=== PATIENT | female | born 1960 | race Caucasian/White ===

== ENCOUNTER 2018-03-24 01:09 | Outpatient (CLI) | payer BC, SELFPAY ==
[2018-03-24 12:06] LABS: ALT 21 U/L (12-78); AST 21 U/L (15-37); Albumin 3.4 g/dL (3.4-5.0); Alkaline Phosphatase 93 U/L (46-116); Anion Gap 7.8 mmol/L (3-11); BUN 12 mg/dL (7-18); Bilirubin, Total 0.6 mg/dL (0.2-1.0); CO2 30.2 mmol/L (21.0-32.0); CREATININE 0.87 mg/dL (0.55-1.02); Calcium 8.9 mg/dL (8.5-10.1); Chloride 104 mmol/L (98-107); Glucose 85 mg/dL (70-100); Potassium 4.2 mmol/L (3.5-5.1); Sodium 142 mmol/L (136-145)
== END 2018-03-24 01:29 ==
DX: E03.9 Hypothyroidism, unspecified (principal); G47.9 Sleep disorder, unspecified; Z00.00 Encounter for general adult medical examination without abnormal findings
CPT/HCPCS: 36415; 80053

== ENCOUNTER 2019-04-04 01:21 | Outpatient (CLI) | payer BC, SELFPAY ==
[2019-04-04 12:41] LABS: Anion Gap 5.4 mmol/L (3-11); BUN 24 mg/dL (7-18); CO2 28.6 mmol/L (21.0-32.0); Calcium 8.5 mg/dL (8.5-10.1); Chloride 109 mmol/L (98-107); Glucose 93 mg/dL (74-106); Potassium 4.6 mmol/L (3.5-5.1); Sodium 143 mmol/L (136-145)
== END 2019-04-04 01:41 ==
DX: Z00.00 Encounter for general adult medical examination without abnormal findings (principal); Z13.228 Encounter for screening for other metabolic disorders
CPT/HCPCS: 36415; 80048

== ENCOUNTER 2019-05-11 01:39 | Outpatient (CLI) | payer BC, SELFPAY ==
--- NOTE | 2019-05-11 15:51 | DI.MAMMO_ITS ---
EXAM: MAMMO SCREENING CLINICAL HISTORY: screening, Z12.39 TECHNIQUE: Mammograms were interpreted according to the usual protocol including computer analysis w [employer] CAD system, tomosynthesis and C-view imaging. COMPARISON: 2009 through 2017 FINDINGS: The breasts are composed of scattered fibroglandular densities, Breast Density category B. No suspicious masses or suspicious microcalcifications are seen. No skin thickening or abnormal axillary lymph nodes are seen. There has been no significant change from prior exams. IMPRESSION: BIRADS Category 1, negative mammogram. Yearly screening mammography is recommended.
== END 2019-05-11 01:59 ==
DX: Z12.31 Encounter for screening mammogram for malignant neoplasm of breast (principal)
CPT/HCPCS: 77063; 77067

== ENCOUNTER 2019-09-23 08:36 | Outpatient (CLI) | payer BC, SELFPAY ==
[2019-09-30 10:20] LABS: SARS-CoV-2 RNA Undetected (Undetected)
== END 2019-09-23 08:56 ==
DX: Z20.828 Contact with and (suspected) exposure to other viral communicable diseases (principal)
CPT/HCPCS: U0003

== ENCOUNTER 2020-01-06 13:59 | Emergency (ER) | payer BC, SELFPAY ==
[2020-01-06 14:03] VITALS: BP 125/80; PULSE 72; RESP 18; TEMP 36.7; O2SAT 96
[2020-01-06 14:28] LABS: Bilirubin Moderate (Negative); Blood Negative (Negative); Clarity Sl Cloudy (Clear); Glucose Negative (Negative); Ketones 40 mg/dL (Negative); Leukocyte Esterase Small (Negative); Nitrite Negative (Negative); Specific Gravity >= 1.030 (1.005-1.025); Urobilinogen 0.2 EU/dL (Up TO 0.2)
--- NOTE | 2020-01-06 14:30 | DI.CT_ITS ---
EXAM: CT ABDOMEN PELVIS W INDICATION: Abd pain, N/V/D. COMPARISON: No exams were available for comparison TECHNIQUE: FINDINGS: CT examination of the abdomen and pelvis was performed with a bolus infusion of 100 cc of Omnipaque 3 50. Images obtained through the lung bases are unremarkable. The liver is unremarkable appearance. Gallbladder and bile ducts are CT normal. Pancreas appears normal. Spleen is unremarkable in appearance. Adrenals and kidneys are unremarkable. Urinary bladder unremarkable. Abdominal aorta is of normal diameter and no major vascular abnormality is seen. No abdominal wall hernia. No abdominal or pelvic adenopathy. There is low-attenuation structure in the pelvis to the right of midline, this measures about 7 cm in diameter period this may represent a cysts cystic lesion, however solid components not excluded by C T and correlation with pelvic ultrasound recommended.. Appendix is normal. No evidence of diverticulitis or bowel obstruction. IMPRESSION: Indeterminate probably cystic lesion of the pelvis, likely ovarian in origin. Pelvic ultrasound requ ested for further characterization in a postmenopausal patient to exclude neoplastic disease. RADIATION DOSE DELIVERED: 999.23mGy.cm Total DLP 999.23mGy.cm Total DLP
[2020-01-06 14:41] LABS: Bacteria Moderate HPF (Negative); C & S Indicated? Yes; Casts Negative LPF (Negative); Crystals Negative HPF (Negative); Epithelial Cells Few HPF (Negative); Mucus Heavy (Negative); RBC Negative HPF (0-2); WBC 20-50 HPF (0-5)
--- NOTE | 2020-01-06 14:43 | ED.GENADUL_ITS ---
Discharge Plan Disposition Patient Disposition: HOME Condition: Good Discharge Details Clinical Impression: Diarrhea, Abdominal discomfort Primary Care Provider: Eula Salazar ED Provider: Malathi Gannon Home Meds and New Rx's Prescriptions: Continued trazodone 100 mg tablet 100 mg PO HS Qty: 45 RF: 3 ascorbic acid (vitamin C) [Vitamin C] 1,000 MG tablet 1,000 mg PO DAILY RF: 0 Shingrix (PF) 50 mcg/0.5 mL suspension for reconstitution 0.5 ml IM ONCE Qty: 1 RF: 0 Discharge Instructions Instructions: Acute Diarrhea (ED) Additional Instructions: Please continue to encourage water intake. Tylenol and/or ibuprofen as needed for discomfort. You may use Imodium to help with your frequent diarrhea. Please take as directed on the packaging. As we discussed, mesenteritis was noted on your CT scan. This likely goes along with viral infection and inflammatory issue that is causing her diarrhea. However, her general surgeon has recommended that she follow-up with her primary care in 3 months and have repeat imaging to ensure that this is clear. We also need to have an outpatient ultrasound to assess assist in your adnexa. Please discuss this further with your primary care. If you develop increased pain, fever/inability stay hydrated or other new/worsening symptoms to seek care urgently once again. Otherwise, please recheck your primary care next week to schedule your outpatient ultrasound once her diarrhea has slowed down and schedule follow-up appointment. Referrals: Eula Salazar, [facility] [Primary Care Provider] - Discharge Data Discharge Date/Time-TO BE ENTERED AT DEPARTURE: 01/06/20 19:05 Medical Decision Making <Danelle Aldridge - Last Filed: 01/10/20 08:32> 59-year-old female presents to the ER with abdominal pain, nausea vomiting diarrhea which began constantly 48 hours ago. Patient reports chills. Constant pain with no radiation. She has no history of abdominal surgeries. She is postmenopausal. She describes the pain as stabbing needles to her bilateral lower extreme abdomen. Denies any vaginal bleeding or discharge. Denies any hematemesis or hematochezia. She did take some Pepto-Bismol prior to arrival. At this time work-up ordered including CBC, CMP, urinalysis, lipase, CT abdomen pelvis. Differential diagnosis includes but not limited to gastroenteritis, diverticulitis, appendicitis, colitis, urinary tract infection. Care is to be handed off to oncoming provider Malathi Teixeira pending CT result. Patient is just leaving department at this time to go to CT. At this time labs have resulted which are largely within normal limits. Sodium was 135, potassium 3.3, urinalysis shows 30 urine protein, 48 urine ketones moderate bilirubin, small leukocytes, 20-50 WBCs culture is pending at this time. <MONICA Alford - Last Filed: 01/06/20 22:08> Care transition myself from Adriana Aldridge NP with CT imaging pending. Please see her note for initial presentation, exam and history. In brief, patient is a pleasant food 59-year-old female who came in today with left-sided abdominal pain. On Marck's initial exam, pain was noted in the left upper and lower quadrants. Laboratory findings thus far have been fairly unremarkable. No previous abdominal surgeries. Patient was noted to have small amount of leukocyte esterase in her urine. Did appear dehydrated based on UA. Has been receiving fluids. FINDINGS: Lungs: Dependent atelectatic changes at the pulmonary bases. Liver: Normal. No mass. Gallbladder and bile ducts: Normal. No calcified stones. No ductal dilation. Pancreas: Normal. No ductal dilation. Spleen: Normal. No splenomegaly. Adrenals: Normal. No mass. Kidneys and ureters: Normal. No hydronephrosis. Stomach and bowel: Unremarkable. No obstruction. No mucosal thickening. Appendix: No evidence of appendicitis. Intraperitoneal space: Unremarkable. No free air. No significant fluid collection. Vasculature: Unremarkable. No abdominal aortic aneurysm. Lymph nodes: Ground-glass appearance of the mesentery with mildly prominent lymph nodes. Mesenteritis is not excluded. Urinary bladder: Unremarkable as visualized. Reproductive: Right adnexal cyst measures 6.8 cm. Left adnexal varices. Bones/joints: Unremarkable. No acute fracture. Soft tissues: Uncomplicated small umbilical hernia.. IMPRESSION: 1. Dependent atelectatic changes at the pulmonary bases. 2. Right adnexal cyst measures 6.8 cm. Follow-up with ultrasound. 3. Left adnexal varices. 4. Ground-glass appearance of the mesentery with mildly prominent lymph nodes. Mesenteritis is not excluded. Consulted with Dr. Lambert. We discussed the mesenteritis. She advises that there is no strict guidelines for this. Advised this is more of a follow up although a soft finding. She advises CT in 3 months would be a erring on the side of caution. Discussed his findings at length with the patient. I reexamined her abdomen she has no right-sided pain to suggest right adnexal pathology nor does she have any pain in the lower abdomen the left side. Pain does seem to be more mid left side. This could go along with the mesenteritis and prominent lymph nodes noted. We discussed her history further, she reports that she has had 20 watery bowel movements today. No bright red blood. Her hemoglobin was stable. She states that her coworker had similar illness last week and suffered from d iarrhea for few days with self resolution. Patient is not immunocompromised. She denies any antibiotic usage. She denies any camping, unusual food or water intake. No recent travel. No fevers or chills. No nausea or vomiting. Patient has not had a bowel movement since being here, patient has been in the department for 3-1/2 hours. She reports that she could potentially give us a stool sample now, will order C. difficile testing although she does not express any risk associated with this. Testing was negative. Lactoferrin was positive. Discussed these findings with the patient. We will hold off on any antibiotics at this point. As discussed with her the findings of the urinalysis. She denies any dysuria, increased urgency. She reports increased frequency but associates this more with using the restroom more frequently with her bowel habits. She reports she has had UTIs historically and does not feel like that at this time. At this point, we will hold off and wait for culture. Patient was given strict return precautions. I encourage close follow-up with primary care particularly if symptoms are not improving next week. All of her questions and concerns were addressed and she is in agreement this plan. HPI <Danelle Aldridge - Last Filed: 01/10/20 08:32> General Mode of arrival: ambulatory . Date/Time Provider Initiated Documentation: 01/06/20 14:15 . Limitations to Documentation: no limitations . Information obtained by: patient . HPI Narrative: 59-year-old female presents to the ER with abdominal pain, nausea vomiting diarrhea which began constantly 48 hours ago. Patient reports chills. Constant pain with no radiation. She has no history of abdominal surgeries. She is postmenopausal. She describes the pain as stabbing needles to her bilateral lower extreme abdomen. Denies any vaginal bleeding or discharge. Denies any hematemesis or hematochezia. She did take some Pepto-Bismol prior to arrival. Related Data Home Medications Medication Instructions Recorded Confirmed ascorbic acid (vitamin C) [Vitamin 1,000 mg PO DAILY 07/10/16 01/06/20 C] trazodone 100 mg tablet 100 mg PO HS #45 tab-cap 03/29/19 01/06/20 varicella-zoster glycoE [id number] 0.5 ml IM ONCE #1 each 04/04/19 01/06/20 adj(PF) 50 mcg/0.5 mL IM susp, kit Previous Rx's Medication Instructions Recorded trazodone 100 mg tablet 100 mg PO HS #45 tab-cap 03/29/19 varicella-zoster glycoE [id number] 0.5 ml IM ONCE #1 each 04/04/19 adj(PF) 50 mcg/0.5 mL IM susp, kit Allergies Allergy/AdvReac Type Severity Reaction Status Date / Time erythromycin base Allergy Unknown NOT SURE Verified 12/09/19 17:46 OF REACTION General Stated Complaint: Abd Prob EMILY: 3 Review of Systems <Danelle Aldridge - Last Filed: 01/10/20 08:32> Narrative: Constitutional: Negative for weight loss, alert and oriented, well groomed, normal body habitus, appears comfortable. HEENT: Denies trauma, headaches, blurry vision, nasal discharge, sore throat, trouble swallowing. Chest: Denies chest pain, palpitations, irregular rhythm, hypertension. Respiratory: Denies Shortness of breath, cough, hemoptysis. GI: Denies constipation. Positive abdominal pain, nausea vomiting diarrhea x48 hours. : Denies dysuria, hematuria, flank pain, rectal bleeding. Neuro: Denies dizziness, blurry vision, weakness, syncope, headache or facial numbness. Hematologic: Denies easy bruising, intolerance to heat or cold, hair loss. PFS <Danelle Aldridge - Last Filed: 01/10/20 08:32> Medical History Abnormal finding on ultrasound (07/10/16) Abnormal uterine bleeding (06/18/16) Cyst of right ovary (06/18/16) Increased body mass index (BMI) Right flank pain (06/18/16) Shoulder pain, left Surgical History Colonoscopy - [facility] 03/12/12 Uterine polyp removal [facility] [place] Family History Mother , [place] at age 62. Diabetes Essential hypertension Heart disease Hyperlipidemia Myocardial infarction Maternal Uncle Diabetes Father No problems noted. Sister No problems noted. Sister No problems noted. Sister No problems noted. Sister No problems noted. Brother No problems noted. Brother No problems noted. Maternal Grandfather No problems noted. Paternal Grandfather No problems noted. Maternal Grandmother No problems noted. Paternal Grandmother No problems noted. Son No problems noted. Son No problems noted. Social History Smoking/Tobacco Use Status: Never Alcohol Intake: current Alcohol Intake frequency: a few times a week Alcohol type: beer, wine and hard liquor Drug use: Never Substance use type: does not use Counseling given: No Counseling provided: none Caregiver/Support person: No Household members: spouse Housing: house Communication Needs: None Do you need help understanding health information?: Rarely current occupation: public teacher [employer] Pets and animals: No Sexually active: Yes Do you think of yourself as: straight/heterosexual Current gender identity: female What is your relationship status?: How often do you talk on the phone with friends or family?: once per week How often do you get together with friends or relatives?: three or more times per week How often do you attend nondenominational or shinto services?: decline to answer Do you belong to any clubs or organized social groups?: yes Panel score (0-1 are the most socially isolated patients): 3 What type of physical activity do you participate in: aerobic and yoga Duration: 30-45 minutes/day Frequency: 3-4 times per week [place]/Zoroastrian: Taoism Special paris needs: No Seatbelt use: always Helmet use: Yes Helmet use: always Drive intox or ride w/intox emergency detail driver: No Do you feel safe at home: Yes Do you feel safe in your relationship?: Yes Exam <Danelle Aldridge - Last Filed: 01/10/20 08:32> Narrative Exam Narrative: Constitutional: Alert and oriented x3. Appears stated age. Normal body habitus. Head: Normocephalic, no trauma. Eyes: Pupils PERRLA, Red reflex noted, EOM's intact. Eyelids symmetrical without lesions, discharge, or swelling. ENT: Bilateral TM's WNL, External ear normal to inspection, no mastoid TTP, swelling, or erythema, Nasal turbinates WNL, no nasal discharge. Normal dentition, Posterior pharynx WNL, no exudate. Chest: RRR, Normal S1, S2, distal pulses intact. Resp: Lungs clear to auscultation bilaterally, no wheezes, rales, or rhonchi. Abdomen: Soft nondistended abdomen, normoactive bowel sounds all 4 quadrants. Does have some left upper quadrant and left lower quadrant tenderness to palpation. Musculoskeletal: Normal gait, 5/5 strength to all four extremities. Skin: No suspicious rashes or lesions. Capillary refill less than 2 sec. Neurologic: Cranial nerves II-XII intact. Alert and oriented x 3. DTR's intact. Hematologic/Lymphatic: No ecchymosis, no lymphadenopathy. Course <Danelle Aldridge - Last Filed: 01/10/20 08:32> Vital Signs Vital signs: Vital Signs Temperature 36.7 C 01/06/20 14:03 Pulse 72 01/06/20 14:03 Respiratory Rate 18 01/06/20 14:03 Blood Pressure 125/80 01/06/20 14:03 Pulse Oximetry 96 01/06/20 14:03 Temperature 36.7 C 01/06/20 14:03 Temperature Source Tympanic 01/06/20 14:03 Pulse 72 01/06/20 14:03 Respiratory Rate 18 01/06/20 14:03 Respiratory Effort Non-Labored 01/06/20 14:06 Blood Pressure 125/80 01/06/20 14:03 Blood Pressure Position Sitting 01/06/20 14:03 Pulse Oximetry 96 01/06/20 14:03 Oxygen Delivery Method Room Air 01/06/20 14:03 Oxygen Flow Rate 0 01/06/20 14:03 Pain Level 7 01/06/20 14:03 Lab/Test Results Lab/Test Results: 01/06/20 14:20 Urine - Reflex from Ua Urine Culture - Pending Laboratory Tests Range/Units 01/06/20 14:20 Urine Color (Yellow) Lizz Urine Clarity (Clear) Sl cloudy Urine pH (5-8) 6.0 Ur Specific Anselmo (1.005-1.025) >= 1.030 H Urine Protein (Negative) mg/dL 30 H Urine Ketones (Negative) mg/dL 40 H Urine Blood (Negative) Negative Urine Nitrite (Negative) Negative Urine Bilirubin (Negative) Moderate H Urine Urobilinogen (Up TO 0.2) EU/dL 0.2 Ur Leukocyte Esterase (Negative) Small H Urine RBC (0-2) HPF Negative Urine WBC (0-5) HPF 20-50 H Ur Epithelial Cells (Negative) HPF Few Urine Crystals (Negative) HPF Negative Urine Bacteria (Negative) HPF Moderate Urine Casts (Negative) LPF Negative Urine Mucus (Negative) Heavy Ur Culture Indicated? Yes Urine Glucose (Negative) mg/dL Negative Sign Out <Danelle Aldridge - Last Filed: 01/10/20 08:32> Sign Out Data: Sign Out Comment: Pending CT/ abd results and possible UTI Last updated by Danelle Aldridge at 01/06/20 15:52
[2020-01-06 15:07] LABS: Abs Immature Grans 0.01 10^3/uL (0.0-0.06); Absolute Basophil Count 0.03 10^3/uL (0.0-0.2); Absolute Eosinophil Count 0.08 10^3/uL (0.0-0.7); Absolute Lymphocyte Count 1.09 10^3/uL (1.2-3.4); Absolute Monocyte Count 0.26 10^3/uL (0.1-0.8); Absolute Neutrophil Count 4.78 10^3/uL (1.2-6.7); Basophils % 0.5; Eosinophils % 1.3; HCT 42.7 % (36.0-46.0); HGB 14.3 g/dL (11.2-15.7); Immature Grans % 0.2; Lymphocytes % 17.4; MCH 30.6 pg (27.0-33.0); MCHC 33.5 % (32.0-36.0); MCV 91.4 fL (80-95); MPV 9.9 fL (8.0-11.0); Monocytes % 4.2; Neutrophils % 76.4; Nucleated RBC 0 %; Platelet Count 329 10^3/uL (130-400); RBC 4.67 10^6/uL (3.93-5.22); RDW 12.4 % (11.7-14.6); RDW-SD 41.6 fL; WBC 6.25 10^3/uL (4.4-10.8)
[2020-01-06 15:16] LABS: ALT 16 U/L (14-59); AST 24 U/L (15-37); Albumin 3.5 g/dL (3.4-5.0); Alkaline Phosphatase 112 U/L (46-116); BUN 15 mg/dL (7-18); Bilirubin, Total 0.4 mg/dL (0.2-1.0); CREATININE 0.89 mg/dL (0.55-1.02); Calcium 8.8 mg/dL (8.5-10.1); Chloride 100 mmol/L (98-107); Glucose 101 mg/dL (74-106); Lipase 113 U/L (73-393); Magnesium 1.9 mg/dL (1.8-2.4); Potassium 3.3 mmol/L (3.5-5.1); Sodium 135 mmol/L (136-145); Total Protein 8.3 g/dL (6.4-8.2)
[2020-01-06] MEDS: Omnipaque 350 MG/ML 100 ML BTL IJ (16:07)
[2020-01-06] MEDS: Normal Saline - Diluent 50 ML VIAL IV (16:08)
--- NOTE | 2020-01-06 16:33 | DI.VRAD_ITS ---
PROCEDURE INFORMATION: Exam: CT Abdomen And Pelvis With Contrast Exam date and time: 01/06/2020 4:10 PM Age: 59 years old Clinical indication: Other: Lower abd pain. ; Patient HX: N/v/d TECHNIQUE: Imaging protocol: Computed tomography of the abdomen and pelvis with intravenous contrast. Radiation optimization: All CT scans at this facility use at least one of these dose optimization techniques: automated exposure control; mA and/or kV adjustment per patient size (includes targeted exams where dose is matched to clinical indication); or iterative reconstruction. Contrast material: OMNIPAQUE 350; Contrast volume: 100 ml; Contrast route: INTRAVENOUS (IV); COMPARISON: MRI PELVIS WO W 07/07/2016 5:04 PM FINDINGS: Lungs: Dependent atelectatic changes at the pulmonary bases. Liver: Normal. No mass. Gallbladder and bile ducts: Normal. No calcified stones. No ductal dilation. Pancreas: Normal. No ductal dilation. Spleen: Normal. No splenomegaly. Adrenals: Normal. No mass. Kidneys and ureters: Normal. No hydronephrosis. Stomach and bowel: Unremarkable. No obstruction. No mucosal thickening. Appendix: No evidence of appendicitis. Intraperitoneal space: Unremarkable. No free air. No significant fluid collection. Vasculature: Unremarkable. No abdominal aortic aneurysm. Lymph nodes: Ground-glass appearance of the mesentery with mildly prominent lymph nodes. Mesenteritis is not excluded. Urinary bladder: Unremarkable as visualized. Reproductive: Right adnexal cyst measures 6.8 cm. Left adnexal varices. Bones/joints: Unremarkable. No acute fracture. Soft tissues: Uncomplicated small umbilical hernia.. IMPRESSION: 1. Dependent atelectatic changes at the pulmonary bases. 2. Right adnexal cyst measures 6.8 cm. Follow-up with ultrasound. 3. Left adnexal varices. 4. Ground-glass appearance of the mesentery with mildly prominent lymph nodes. Mesenteritis is not excluded. Dictated and Authenticated by: Ariane Wolf MD. Ordering:SADNY Mcclendon MD
[2020-01-06 17:50] VITALS: BP 111/72; PULSE 62; RESP 16; O2SAT 98
== END 2020-01-06 19:05 | disposition home or self-care (01) ==
PROVIDERS: Registered Nurse Emergency; Emergency Provider Physician Assistant
DX: K65.4 Sclerosing mesenteritis (principal); R19.7 Diarrhea, unspecified; R11.2 Nausea with vomiting, unspecified; R10.30 Lower abdominal pain, unspecified
CPT/HCPCS: 36415; 80053; 83690; 99285; 74177; 81003; 81015; 83630; 83735; 85025; 87086; 87324; J3490

== ENCOUNTER 2020-02-07 01:45 | Outpatient (CLI) | payer BC, SELFPAY ==
--- NOTE | 2020-02-07 07:30 | DI.US_ITS ---
EXAM: US PELVIS TRANSVAGINAL CLINICAL HISTORY: F/U of abdominal CT - ? ovarian cyst or mass,ABD DISCOMFORT,R10.9 TECHNIQUE: Transabdominal and transvaginal imaging was performed using standard protocol. COMPARISON: US PELVIS TRANSVAG from 06/27/2016 US PELVIS TRANSVAG from 06/27/2016 MR MRI PELVIS WO W from 07/07/[address] ABDOMEN PELVIS W from 01/06/2020 FINDINGS: KIDNEYS: Kidneys are symmetric in size. No evidence of renal calculi. No evidence of hydronephrosis. No renal mass or cyst identified. UTERUS: Anteverted. 8.0 x 3.5 x 5 cm. Endometrium: 2 millimeters Myometrium: Unremarkable. Stable appearance of 1.4 centimeter hypoechoic lesion in the right side of the uterus which could be endometrial or myometrial. Cervix: Unremarkable. OVARIES: Right: 7.4 x 5.2 x 5.2 cm. Cyst or mass: Stable size of simple appearing right ovarian cyst measuring 6 cm in maximal dimension.. No mural nodularity or septations. Left: 2.4 x 1.8 x 1.8 cm. Cyst or mass: None. DOPPLER: Color: Symmetric and uniform flow to both ovaries. No hyperemia. Duplex: Normal ovarian arterial waveforms visualized. CUL-DE-SAC: Free fluid: None. IMPRESSION: 1. Stable appearance of small low-density lesion in the right uterine fundus.. 2. Stable size and appearance of simple right ovarian cyst measuring 6 cm in greatest dimension.. DATA REPOSITORY:
== END 2020-02-07 02:05 ==
DX: N83.291 Other ovarian cyst, right side (principal); R10.9 Unspecified abdominal pain
CPT/HCPCS: 76830; 76856

== ENCOUNTER 2020-04-03 09:07 | Outpatient (REF) | payer BC, SELFPAY ==
--- NOTE | 2020-04-03 07:20 | PAPFT_PTH ---
PATIENT: Tesha Whitlock LOC: [facility] U#:[id number] AGE/SX: 60/F ROOM: RE04/03/[address]: Eula Salazar APRN : 1960 BED: DIS: 04/03/2020 SPEC #: [id number] RECD: 04/03/20 13:00 STATUS: LIO RERandi #: [id number] VON: 04/03/20 07:[address]: Eula Salazar DEPT: [facility] Cytology RECD BY: Rosalind Mason Tissues: 1 - CX/ENDOCX FOR PAP SMEARS Procedures: PAP THIN PREP/UVM Screening HPV DNA PROBE Comments: [id number]
== END 2020-04-03 09:27 ==
LOC: LBN 09:07
DX: Z12.4 Encounter for screening for malignant neoplasm of cervix (principal); Z11.51 Encounter for screening for human papillomavirus (HPV)
CPT/HCPCS: 88142; 87624

== ENCOUNTER 2020-05-15 13:48 | Outpatient (CLI) | payer BC, SELFPAY ==
--- NOTE | 2020-05-15 | DI.MAMMO_ITS ---
EXAM: MAMMO SCREENING CLINICAL HISTORY: SCREENING, Z12.39 TECHNIQUE: Mammograms were interpreted according to the usual protocol including computer analysis w [employer] CAD system, tomosynthesis and C-view imaging. COMPARISON: FINDINGS: The breasts are heterogeneously dense. No dominant mass or clumped microcalcification is identified in either breast. The current examination is compared with previous examinations including April 2019 and there has been no gross interval change in appearance in comparison with the prior studies. IMPRESSION: No specific evidence of malignancy at this time. Routine screening examinations are suggested at yea rly intervals in this age group according to the ACS ACR guidelines. BI-RADS Category 1 - Negative Breast Density - Category C - Heterogeneously dense
== END 2020-05-15 14:08 ==
DX: Z12.31 Encounter for screening mammogram for malignant neoplasm of breast (principal)
CPT/HCPCS: 77063; 77067

== ENCOUNTER 2021-03-27 21:34 | Outpatient (REF) | payer BC, SELFPAY | END 2021-03-27 21:35 | disposition home or self-care (01) | LOC: LBN 21:34 | PROVIDERS: Visit Provider Nurse Practitioner Family | DX: J02.9 Acute pharyngitis, unspecified (principal) | CPT/HCPCS: 87070 ==

== ENCOUNTER 2021-07-12 00:53 | Outpatient (CLI) | payer BC, SELFPAY ==
--- NOTE | 2021-07-12 06:30 | DI.MAMMO_ITS ---
Exam(s) MAMMO SCREENING EXAM: MAMMO SCREENING CLINICAL HISTORY: screening,z12.39 TECHNIQUE: Mammograms were interpreted according to the usual protocol including computer analysis w [employer] CAD system, tomosynthesis and C-view imaging. COMPARISON: 2011 through 2020 FINDINGS: The breasts are composed of heterogeneously dense fibroglandular densities, Breast Density category C . No suspicious masses or suspicious microcalcifications are seen. No skin thickening or abnormal axillary lymph nodes are seen. There has been no significant change from prior exams. IMPRESSION: BI-RADS Category 1, Negative mammogram. Yearly screening mammography is recommended. Breast Density Category C, heterogeneously Dense. The mammogram demonstrates the patient's breast tissue is dense. Dense breast tissue is very common a nd is not abnormal but dense breast tissue can make it harder to find cancer on a mammogram. Also, de nse breast tissue may increase breast cancer risk. This information about the result of the mammogram report was provided to the patient to raise their awareness. Use this report when you speak with the patient about their risks for breast cancer, which includes their family history. At that time, you may recommend additional screening tests (Ultrasound or MRI) as they might be useful based on their r isk. A negative radiographic report should not delay biopsy if a dominant or clinically suspicious mass is present. Up to ten percent of cancers are not identified on mammography. A negative report may reinforce clinical impression. Adenosis and dense breasts may obscure an underlying neoplasm. False positive reports average 6 to 10%.
== END 2021-07-12 01:13 ==
DX: Z12.31 Encounter for screening mammogram for malignant neoplasm of breast (principal)
CPT/HCPCS: 77063; 77067

== ENCOUNTER 2022-02-25 02:37 | Outpatient (CLI) | payer BC, SELFPAY ==
[2022-02-25 17:12] LABS: ALT 17 U/L (14-59); AST 20 U/L (15-37); Albumin 3.8 g/dL (3.4-5.0); Alkaline Phosphatase 101 U/L (46-116); Anion Gap 5.8 mmol/L (3-11); BUN 14 mg/dL (7-18); Bilirubin, Total 0.5 mg/dL (0.2-1.0); CO2 31.2 mmol/L (21.0-32.0); CREATININE 0.7 mg/dL (0.55-1.02); Calcium 8.6 mg/dL (8.5-10.1); Chloride 102 mmol/L (98-107); Estimated GFR 98.95 (mL/min/1.73m2); Glucose 114 mg/dL (74-106); Potassium 3.6 mmol/L (3.5-5.1); Sodium 139 mmol/L (136-145); Total Protein 7.9 g/dL (6.4-8.2)
== END 2022-02-25 02:38 | disposition home or self-care (01) ==
PROVIDERS: PCP Nurse Practitioner Family
DX: E03.9 Hypothyroidism, unspecified (principal); Z00.00 Encounter for general adult medical examination without abnormal findings
CPT/HCPCS: 36415; 80053

== ENCOUNTER 2022-04-11 11:54 | Day surgery (SDC) | payer BC, SELFPAY ==
--- NOTE | 2022-04-10 21:43 | W.PM.DSUDISC ---
Date of service: 04/11/22 Time of Service: 14:55 Discharge Plan Disposition Patient Disposition: Home Condition: Good Discharge Details Reason For Visit: Screening colonoscopy Attending Provider: Ganga Weller Primary Care Provider: Ayden Busch Home Meds and New Rx's Prescriptions: Continued ascorbic acid (vitamin C) [Vitamin C] 1,000 MG tablet 1,000 mg PO DAILY trazodone 100 mg tablet 100 mg PO HS Qty: 90 3RF Discontinued polyethylene glycol 3350 17 gram/dose powder 238 g PO ONCE Qty: 238 0RF Rx Instructions: take per colonoscopy instructions bisacodyl [Dulcolax (bisacodyl)] 5 mg tablet,delayed release (DR/EC) 5 mg PO ONCE Qty: 4 0RF Rx Instructions: take per colonoscopy instructions Discharge Instructions Additional Instructions: 1. If tolerated, consume a soft, low fiber diet for 1-2 days. 2[address] Do not drive, drink alcohol, operate machinery, make critical decisions, or do activities that require coordination or balance for 24 hours. 3. Because air was put into your colon during the procedure, expelling air from your rectum (passing gas or farting) is normal. 4. You may not have a bowel movement for 1-3 days because of the colonoscopy prep. This is normal. 5. Go directly to the emergency room if you notice any of the following: Develop chills (warm to touch), or if you have a thermometer and your temperature is above 101 Difficulty breathing or difficultly swallowing Persistent vomiting Severe abdominal pain, other than gas cramps Severe chest pain Black, tarry stools Any bleeding ? exceeding one tablespoon 6. Call your physician if the site where your intravenous was started becomes red, swollen, painful, and warm to touch. 7. Your physician has reviewed your pre-procedure medications. Please continue to take those medications as previously ordered. You will be given specific information/education regarding any changes to your medications before leaving. Activity:: Activity as Tolerated Diet:: As Tolerated Discharge Orders Discharge Orders: Discharge Order (Routine); Ordered 04/10/22 Ordered By: Ganga Weller DS: Diagnosis Discharge Diagnosis (1) Colon cancer screening: Status: Acute Asessment and Plan: Tesha, we are able to complete your colonoscopy today. The quality of your prep was excellent. there were no abnormalities. You should undergo another screening colonoscopy in 10 years to reduce your chance of from colon cancer.
--- NOTE | 2022-04-10 21:45 | W.COLOREPORT ---
Date of service: 04/11/22 Time of Service: 14:56 Colonoscopy Report Date of procedure: 04/11/22 Pre-op diagnosis general: Screening colonoscopy Post-op diagnosis procedure note: same Procedure: Colonoscopy Surgeon: Ganga Weller Anesthesia Type: General:No Airway Estimated blood loss (mL): 0 Pathology: none sent Complications: None Disposition: same day Indications: Tesha is a 62-year-old woman following up for her second screening colonoscopy. Prep: Miralax/Dulcolax Procedure Start Time: 14:32 Procedure End Time: 14:50 Retraction Time: 10 Findings: Normal colonoscopy Procedure Description: After the induction of monitored anesthetic care, and with the patient in left lateral decubitus position, I began by performing an external anorectal exam.? Perineum and skin were normal, as was the anal verge.? There was no evidence of external hemorrhoids.? Next, I performed a digital rectal exam.? I did not appreciate any abnormal findings.? Next, I advanced a colonoscope into the rectal vault.? I performed retroflexion.? This was normal.? Using insufflation, I then advanced the colonoscope beyond the rectal folds and into the sigmoid colon before advancing towards the cecum.? The quality of the prep was adequate.? The scope was noted to be in the cecum by identification of the ileocecal valve and appendiceal orifice.? I then began withdrawing the colonoscope using repeated irrigation as necessary for full evaluation of the colonic mucosa. ?Once the scope was withdrawn to the level of the rectum, great care was taken to examine portions of the rectal folds.? Finally, the scope was withdrawn and the patient was brought to the same-day surgery recovery unit as the anesthetic wore off. ?The findings and instructions were shared with the patient prior to discharge.
[2022-04-11 12:54] VITALS: BP 121/83; PULSE 73; RESP 16; TEMP 36.2; O2SAT 96
[2022-04-11] MEDS: Lactated Ringers 1,000 ML 80 ML IV (13:03)
[2022-04-11 13:35] VITALS: BMI 28.9
--- NOTE | 2022-04-11 13:35 | ANES.PREOP_ITS ---
General Info Date of Service Date Performed: 04/11/22 Height: 5 ft 5 in Weight: 78.925 kg Body Mass Index (BMI): 28.9 Surgical Procedure: Operation Date: 04/11/22 14:20 Proposed Procedure Side Surgeon p Edilberto Weller MD Meds Allergies and Home Medications Allergies Allergy/AdvReac Type Severity Reaction Status Date / Time erythromycin base Allergy Unknown NOT SURE Verified 04/11/22 12:52 OF REACTION Home Medication Medication Instructions Recorded ascorbic acid (vitamin C) 1,000 mg 1,000 mg PO DAILY 07/10/16 tablet (Vitamin C) trazodone 100 mg tablet 100 mg PO HS #90 tab-caps 12/09/21 Current Visit Medications: Current Medications Generic Name Dose Route Start Last Admin Trade Name Freq PRN Reason Stop Dose Admin Hyoscyamine Sulfate 0.125 mg 04/10/22 21:46 Hyoscyamine 0.125 Mg Sl/Oral/Chew SL DIRECTED PRN Ringer's Solution 1,000 mls @ 80 mls/hr 04/11/22 06:00 04/11/22 13:03 IV 05/10/22 23:59 80 mls/hr INFUSION MURPHY Administration IV Miscellaneous Supplies 1 each 04/11/22 06:00 Iv Access IV 05/10/22 23:59 DIRECTED MURPHY Ondansetron HCl 4 mg 04/10/22 21:46 Ondansetron 4 Mg/2 Ml Vial IVP Q4H PRN PRN Nausea / Vomiting Sodium Chloride 0 ml 04/11/22 06:00 Normal Saline Flush 10 Ml Syr IV 05/10/22 23:59 PRN PRN Sodium Chloride 0 ml 04/11/22 06:00 Normal Saline 10 Ml Vial IJ 05/10/22 23:59 DIRECTED PRN Sterile Water 0 ml 04/11/22 06:00 Water,Injection,Sterile 10 Ml Vial IJ 05/10/22 23:59 DIRECTED PRN PFSH Active Problems Active Problems: Problem Status Onset Code Colon cancer screening Z12.11 Encounter for annual physical exam Z00.00 Cervical radiculopathy M54.12 Increased body mass index (BMI) R63.8 Shoulder pain, left M25.512 Plantar fasciitis of right foot M72.2 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 Sleep disturbance, unspecified 10/04/12 G47.9 Medical History Medical History Abnormal finding on ultrasound (07/10/16) Abnormal uterine bleeding (06/18/16) Cyst of right ovary (06/18/16) Right flank pain (06/18/16) Surgical History Surgical History Colonoscopy - MAC 03/12/12 Uterine polyp removal [facility] [place] Tobacco Smoking/Tobacco Use Status: Never Passive smoking exposure: Yes Second hand exposure: Yes Alcohol Alcohol Intake: current Alcohol intake frequency: a few times a week Alcohol type: beer, wine and hard liquor Substance Use Substance use: Never Substance use type: does not use Counseling provided: none Vital Signs and Lab Results Vital Signs Most Recent Vital Signs in EMR: Most Recent Vital Signs Temp Pulse Resp BP Pulse Ox 36.2 C L 73 16 121/83 96 04/11/22 12:54 04/11/22 12:54 04/11/22 12:54 04/11/22 12:54 04/11/22 12:54 Lab Results Blood Type / Crossmatch: No Data to Display Complete Blood Count: No Data to Display Complete Metabolic Panel: No Data to Display Liver Function Panel: No Data to Display Coagulation Panel: No Data to Display Cardiac Panel: No Data to Display Arterial Blood Gas: No Data to Display Venous Blood Gas: No Data to Display Pancreas Panel: No Data to Display Thyroid Panel: No Data to Display Infectious Disease: No Data to Display Blood Cultures: No Data to Display Toxicology Panel: No Data to Display Anesthesia Assessment and Plan Anesthesia History Personal History: No History of Anesthesia Complications Family History: No Family History of Anesthesia Complications Exercise Tolerance Exercise Tolerance: Metabolic Equivalents>4 Pertinent Negatives Pertinent Negatives: No Symptoms of GERD, No Major Cardiovascular Symptoms or Complaints and No Major Pulmonary Symptoms or Complaints Cardiac & Pulmonary Exam Cardiac Exam: Normal S1/S2 Heart Sounds Pulmonary Exam: Clear Bilateral Breath Sounds Implantable Cardiac Device Does patient have a Pacemaker or an ICD?: No Airway Exam Known Difficult Airway: No Mallampati Class: 1 Mouth Opening: Normal (> 3cm) Thyromental Distance: Greater than 3 cm Neck Range of Motion: Full ROM Neck Circumference: Normal Teeth Condition: Normal Dentition ASA Classification ASA Score: ASA 2 Emergency Case?: No NPO Status NPO Status: NPO Clears >2 hours, Solids >8 hours Anesthesia Plan Resuscitation Status: Full Code Anesthesia Technique: General Anesthesia Airway Planned: Natural Airway Monitors Used: Standard Monitors
[2022-04-11 14:55] VITALS: BP 119/84; PULSE 68; RESP 16; TEMP 36.3; O2SAT 96
[2022-04-11 15:25] VITALS: BP 119/84; PULSE 67; RESP 16; TEMP 36.4; O2SAT 98
--- NOTE | 2022-04-11 15:29 | W.ANESPOSTOP ---
Postoperative Evaluation Date, Time and Location Date Performed: 04/11/22 Time Performed: 15:29 Patient Location: Day Surgery Unit Vital Signs Most Recent Imported Vital Signs: Most Recent Vital Signs Temp Pulse Resp BP Pulse Ox 36.4 C L 67 16 119/84 98 04/11/22 15:25 04/11/22 15:25 04/11/22 15:25 04/11/22 15:25 04/11/22 15:25 Pain Score Most Recent Pain Score: Most Recent Pain Score Pain Level 0 04/11/22 15:25 Assessment Mental Status: Awake (Alert & Oriented to Patient Baseline) Airway and Respiratory Function: Patent airway with normal (patient baseline) respiratory exam Cardiovascular Function: Hemodynamically Stable Hydration Status: Adequately Hydrated Nausea & Vomiting: No Nausea or Vomiting Pain: Pt. Denies Any Pain Peripheral Nerve Block: Patient did not receive a nerve block
== END 2022-04-11 15:30 | disposition home or self-care (01) ==
PROVIDERS: PCP Nurse Practitioner Family; Visit Provider Surgery
PROC: 0DJD8ZZ Inspection of Lower Intestinal Tract, Via Natural or Artificial Opening Endoscopic (ICD-10-PCS; CPT 45378; principal; 2022-04-11 14:15)
DX: Z12.11 Encounter for screening for malignant neoplasm of colon (principal)
CPT/HCPCS: 45378; J2704

== ENCOUNTER 2022-07-28 01:24 | Outpatient (CLI) | payer BC, SELFPAY ==
--- NOTE | 2022-07-28 08:30 | DI.MAMMO_ITS ---
Exam(s) MAMMO SCREENING EXAM: MAMMO SCREENING CLINICAL HISTORY: screening,Z12.39 TECHNIQUE: Bilateral full field digital CC and MLO mammographic images were obtained with 3D tomosyn thesis and utilizing computer aided detection (CAD). COMPARISON: Available for comparison. FINDINGS: Masses/Architectural Distortion: None seen. Microcalcifications: No suspicious pleomorphic-type are seen. Skin Thickening/Nipple Retraction: None. IMPRESSION: 1. No significant interval change with no specific features of malignancy noted. 2. Unless there is more urgent need, screening mammography is recommended, as per [place] [employer] guidelines. BI-RADS Category 1 - Negative Breast Density - Category C - Heterogeneously dense Breast density category C or D implies that the patient has dense breast tissue. Dense breast tissue is very common and is not abnormal but dense breast tissue can make it harder to find cancer on a ma mmogram. Also, dense breast tissue may increase their breast cancer risk. This information about the result of the mammogram report was provided to the patient to raise their awareness. Use this report when you speak with the patient about their risks for breast cancer, which includes their family hist ory. At that time, you may recommend for more screening tests (Ultrasound or MRI) as they might be us eful based on their risk. A negative radiographic report should not delay biopsy if a dominant or clinically suspicious mass is present. Up to ten percent of cancers are not identified on mammography. A negative report may reinforce clinical impression. Adenosis and dense breasts may obscure an underlying neoplasm. False positive reports average 6 to 10%. Patient will receive a letter notifying them of these results.
== END 2022-07-28 01:44 ==
PROVIDERS: PCP Nurse Practitioner Family; Visit Provider Nurse Practitioner Family
DX: Z12.31 Encounter for screening mammogram for malignant neoplasm of breast (principal)
CPT/HCPCS: 77063; 77067

== ENCOUNTER 2022-11-20 04:20 | Outpatient (CLI) | payer BC, SELFPAY ==
[2022-11-20 08:43] LABS: Anion Gap 5.6 mmol/L (3-11); BUN 13 mg/dL (7-18); CO2 31.4 mmol/L (21.0-32.0); CREATININE 0.9 mg/dL (0.55-1.02); Calcium 8.7 mg/dL (8.5-10.1); Calculated LDL 107 mg/dL (<100); Chloride 102 mmol/L (98-107); Cholesterol 195 mg/dL (<200); Estimated GFR 72.73 (mL/min/1.73m2); Glucose 96 mg/dL (74-106); HDL Cholesterol 72 mg/dL (40-60); Potassium 4.4 mmol/L (3.5-5.1); Sodium 139 mmol/L (136-145); Triglyceride 81 mg/dL (<150)
== END 2022-11-20 04:21 | disposition home or self-care (01) ==
PROVIDERS: PCP Nurse Practitioner Family; Visit Provider Nurse Practitioner Family
DX: Z13.1 Encounter for screening for diabetes mellitus (principal); Z13.220 Encounter for screening for lipoid disorders
CPT/HCPCS: 36415; 80048; 80061

== ENCOUNTER → 2023-07-31 00:30 | Outpatient (CLI) | payer BC, SELFPAY ==
--- NOTE | 2023-07-31 08:00 | DI.MAMMO_ITS ---
Exam(s) MAMMO SCREENING EXAM: MAMMO SCREENING CLINICAL HISTORY: screening,z12.39 TECHNIQUE: Bilateral full field digital CC and MLO mammographic images were obtained with 3D tomosyn thesis and utilizing computer aided detection (CAD). COMPARISON: Available for comparison. FINDINGS: Masses/Architectural Distortion: None seen. Microcalcifications: No suspicious pleomorphic-type are seen. Skin Thickening/Nipple Retraction: None. IMPRESSION: 1. No significant interval change with no specific features of malignancy noted. 2. Unless there is more urgent need, screening mammography is recommended, as per [place] guidelines. BI-RADS Category 1 - Negative Breast Density - Category C - Heterogeneously dense Breast density category C or D implies that the patient has dense breast tissue. Dense breast tissue is very common and is not abnormal but dense breast tissue can make it harder to find cancer on a ma mmogram. Also, dense breast tissue may increase their breast cancer risk. This information about the result of the mammogram report was provided to the patient to raise their awareness. Use this report when you speak with the patient about their risks for breast cancer, which includes their family hist ory. At that time, you may recommend for more screening tests (Ultrasound or MRI) as they might be us eful based on their risk. A negative radiographic report should not delay biopsy if a dominant or clinically suspicious mass is present. Up to ten percent of cancers are not identified on mammography. A negative report may reinforce clinical impression. Adenosis and dense breasts may obscure an underlying neoplasm. False positive reports average 6 to 10%. Patient will receive a letter notifying them of these results.
== END ==
PROVIDERS: PCP Nurse Practitioner Family; Visit Provider Nurse Practitioner Family
DX: Z12.31 Encounter for screening mammogram for malignant neoplasm of breast (principal); R92.333 Mammographic heterogeneous density, bilateral breasts
CPT/HCPCS: 77063; 77067

== ENCOUNTER 2024-08-01 02:49 | Outpatient (CLI) | payer BC, SELFPAY ==
--- NOTE | 2024-08-01 06:45 | DI.MAMMO_ITS ---
Exam(s) MAMMO SCREENING EXAM: MAMMO SCREENING CLINICAL HISTORY: screening,z12.39 TECHNIQUE: Mammograms were interpreted according to the usual protocol including computer analysis w [employer] CAD system, tomosynthesis and C-view imaging. COMPARISON: 2017 through 2023 FINDINGS: The breasts are composed of scattered fibroglandular densities, Breast Density category B. No suspicious masses or suspicious microcalcifications are seen. No skin thickening or abnormal axillary lymph nodes are seen. There has been no significant change from prior exams. IMPRESSION: BI-RADS Category 1, Negative mammogram Yearly screening mammography is recommended. Breast Density - Category B, scattered fibroglandular densities. Breast density Category C or D implies that the patient has dense breast tissue. Dense breast tissue can make it harder to find cancer on a mammogram. Dense breast tissue is also associated with an incr eased risk of breast cancer. This information about the result of the mammogram report was provided to the patient to raise their awareness. Use this report when you speak with the patient about their risks for breast cancer, which includes their family history. At that time, you may recommend additional screening tests (Ultrasoun d or MRI) as these tests may add significant information. A negative radiographic report should not delay biopsy if a dominant or clinically suspicious mass is present. Up to ten percent of cancers are not identified on mammography. A negative report may reinforce clinical impression. Adenosis and dense breasts may obscure an underlying neoplasm. False positive reports average 6 to 10%. Patient will receive a letter notifying them of these results.
== END 2024-08-01 03:09 ==
LOC: DI 02:49
PROVIDERS: PCP Nurse Practitioner Family; Visit Provider Nurse Practitioner Family
DX: Z12.31 Encounter for screening mammogram for malignant neoplasm of breast (principal)
CPT/HCPCS: 77063; 77067

== ENCOUNTER 2025-02-14 10:32 | Outpatient (REF) | payer BC, SELFPAY | END 2025-02-14 10:33 | disposition home or self-care (01) | LOC: LBN 10:32 | PROVIDERS: PCP Nurse Practitioner Family; Visit Provider Nurse Practitioner Family | DX: R30.0 Dysuria (principal) | CPT/HCPCS: 87480; 87510; 87660 ==

== ENCOUNTER 2025-02-18 10:51 | Outpatient (REF) | payer BC, SELFPAY ==
[2025-02-18 16:34] LABS: Abs Immature Grans 0.01 10^3/uL (0.0-0.06); HCT 37.5 % (36.0-46.0); HGB 11.9 g/dL (11.2-15.7); Immature Grans % 0.2 %; MCH 30.4 pg (27.0-33.0); MCHC 31.7 % (32.0-36.0); MCV 96 fL (80-95); MPV 10.4 fL (8.0-11.0); Platelet Count 346 10^3/uL (130-400); RBC 3.91 10^6/uL (3.93-5.22); RDW 13.0 % (11.7-14.6); RDW-SD 45.8 fL; WBC 5.96 10^3/uL (4.4-10.8)
[2025-02-18 17:02] LABS: ALT 15 U/L (10-49); AST 24 U/L (<34); Albumin 4.0 g/dL (3.2-5.0); Alkaline Phosphatase 94 U/L (46-116); Anion Gap 6.5 mmol/L (3-11); BUN 21 mg/dL (9-23); Bilirubin, Total 0.30 mg/dL (0.2-1.2); CO2 31.5 mmol/L (20.0-31.0); Calcium 9.1 mg/dL (8.3-10.6); Chloride 103 mmol/L (98-107); Glucose 74 mg/dL (74-106); Potassium 4.4 mmol/L (3.5-5.1); Sodium 141 mmol/L (136-145); Total Protein 7.2 g/dL (5.7-8.2)
[2025-02-20 09:54] LABS: HIV-1/2 Ag & Ab Screen Negative (Negative)
== END 2025-02-18 10:52 | disposition home or self-care (01) ==
LOC: LBN 10:51
PROVIDERS: PCP Nurse Practitioner Family; Visit Provider Nurse Practitioner Family
DX: J02.9 Acute pharyngitis, unspecified (principal)
CPT/HCPCS: 80053; 87389; 85025

== ENCOUNTER 2025-03-01 15:16 | Outpatient (REF) | payer BC, SELFPAY | END 2025-03-01 15:17 | disposition home or self-care (01) | LOC: LBN 15:16 | PROVIDERS: PCP Nurse Practitioner Family; Visit Provider Physician Assistant | DX: J02.9 Acute pharyngitis, unspecified (principal) | CPT/HCPCS: 87070 ==